=== PATIENT | male | born 1945 | race African-American/Black ===

== ENCOUNTER 2017-03-29 03:18 | Emergency (ER) | payer MEDICARE, OTHER ==
[~2017-03-29] VITALS: Ht 180.3 cm; Wt 92.5 kg
[~2017-03-29 03:18] MED LIST: AMLO5TAB96 PO; DOXY100T PO; VENTAER INH
[2017-03-29 03:20] VITALS: BP 146/79; PULSE 86; RESP 16; TEMP 97.8; O2SAT 94
[2017-03-29] MEDS ORDERED: AMLO5TAB2 PO (03:41)
[2017-03-29] MEDS ORDERED: SIMV20TA PO (03:42)
[2017-03-29] MEDS ORDERED: OMEP20TA PO (03:42)
[2017-03-29] MEDS ORDERED: SODIUM CHLORIDE 0.9% FLUSH 10 ML FLUSH IV FLUSH PRN (03:45)
[2017-03-29 04:03] LABS: AUTOMATED NEUTROPHIL # 3.8 TH/MM3 (1.8-7.7); BASOPHIL # 0.1 TH/MM3 (0-0.2); BASOPHIL % 1.1 % (0.0-2.0); EOSINOPHIL # 0.4 TH/MM3 (0-0.4); EOSINOPHIL % 5.2 % (0.0-4.0); HEMATOCRIT 44.8 % (39.0-51.0); HEMO FLAGS DIFF FINAL; LYMPH % 37.5 % (9.0-44.0); LYMPHOCYTE # 2.9 TH/MM3 (1.0-4.8); MEAN CELL VOLUME 87.9 FL (80.0-100.0); MEAN CORPUSCULAR HEMOGLOBIN 30.9 PG (27.0-34.0); MEAN CORPUSCULAR HGB CONC 35.1 % (32.0-36.0); MONO % 7.4 % (0.0-8.0); NEUT % 48.8 % (16.0-70.0); PLATELET COUNT 230 TH/MM3 (150-450); RED BLOOD COUNT 5.09 MIL/MM3 (4.50-5.90); RED CELL DISTRIBUTION WIDTH 13.8 % (11.6-17.2); WHITE BLOOD COUNT 7.8 TH/MM3 (4.0-11.0)
[2017-03-29 04:14] LABS: APTT (PATIENT) 27.8 SEC (24.3-30.1); INTERNATIONAL NORMALIZED RATIO 0.9 RATIO; PROTHROMBIN TIME - PATIENT 10.3 SEC (9.8-11.6)
--- NOTE | 2017-03-29 04:14 | RADRPT ---
EXAM DATE/TIME: 03/29/2017 04:01 [facility] COMPARISON: No previous studies available for comparison. INDICATIONS : Leg pain in distal right femur. MEDICAL HISTORY : None. SURGICAL HISTORY : None. ENCOUNTER: Initial ACUITY: 1 day PAIN SCORE: 0/10 LOCATION: Right femur FINDINGS: Two view examination of the right femur demonstrates no evidence of fracture or dislocation. Bony mi neralization is normal. The soft tissue structures are intact. There is advanced degenerative change noted in the knee most prominently in the medial compartment with significant joint space narrowing. CONCLUSION: 1. No acute fracture or dislocation. 2. Advanced degenerative osteoarthritis of the knee, most prominently in the medial compartment. Alexander Dasilva MD on March 29, 2017 at 4:10 Board Certified Radiologist. This report was verified electronically.
--- NOTE | 2017-03-29 04:38 | RADRPT ---
EXAM DATE/TIME: 03/29/2017 03:55 [facility] COMPARISON: No previous studies available for comparison. INDICATIONS : Bilalateral leg pain. MEDICAL HISTORY : Hypertension. Hypercholesterolemia. SURGICAL HISTORY : None. ENCOUNTER: Initial ACUITY: 1 day PAIN SCORE: 3/10 LOCATION: Bilateral legs. TECHNIQUE: Venous ultrasound of the left and right leg was performed from the inguinal ligament to the proximal calf. Real-time, color Doppler and spectral tracing, compression and augmentation techniques were us ed. FINDINGS: RIGHT LEG: There is normal compressibility of the deep venous system from the inguinal region to the proximal ca lf. No echogenic clot is seen in the lumen of the common femoral, femoral, popliteal, and posterior tibial veins. There is a normal response of the venous system to proximal and distal augmentation an d respiration. LEFT LEG: There is normal compressibility of the deep venous system from the inguinal region to the proximal ca lf. No echogenic clot is seen in the lumen of the common femoral, femoral, popliteal, and posterior tibial veins. There is a normal response of the venous system to proximal and distal augmentation an d respiration. CONCLUSION: 1. No sonographic evidence for lower extremity DVT. Alexander Dasilva MD on March 29, 2017 at 4:36 Board Certified Radiologist. This report was verified electronically.
[2017-03-29 04:40] LABS: BICARBONATE 26.9 MEQ/L (21.0-32.0)
[2017-03-29] MEDS ORDERED: CYCL1TAB29 PO (05:00)
--- NOTE | 2017-03-29 05:00 | PD ---
HPI Chief Complaint: Musculoskeletal Complaint Time Seen by Provider: 03:38 Travel History International Travel<30 days: No Contact w/Intl Traveler<30days: No Traveled to known affect area: No History of Present Illness HPI 71-year-old male here for evaluation of right posterior thigh pain that started suddenly at around 11:00 PM yesterday evening after getting up from sitting. Pain is sharp, worse with movement and palpation. No history of DVT or PE. He does a lot of traveling with long car rides. No chest pain or dyspnea. PFSH Past Medical History Cardiovascular Problems: Yes (HTN) High Cholesterol: Yes Hypertension: Yes Tetanus Vaccination: > 5 Years Influenza Vaccination: Yes Past Surgical History Surgical History: No Previous Surgery Social History Alcohol Use: No Tobacco Use: No (quit 50 years ago) Substance Use: No Allergies-Medications (Allergen,Severity, Reaction): Coded Allergies: carisoprodol (Unverified Allergy, Severe, Swelling, 03/29/17) Reported Meds & Prescriptions Reported Meds & Active Scripts Active Reported Omeprazole 20 Mg Tab 20 Mg PO DAILY Simvastatin 20 Mg Tab 20 Mg PO DAILY Amlodipine (Amlodipine Besylate) 5 Mg Tab 5 Mg PO DAILY Review of Systems Except as stated in HPI: all other systems reviewed are Neg Physical Exam Narrative GENERAL: Well-developed, well-nourished, comfortable, no apparent distress. SKIN: Focused skin assessment warm/dry. HEAD: Atraumatic. Normocephalic. EYES: Pupils equal and round. No scleral icterus. No injection or drainage. ENT: Mucous membranes pink and moist. NECK: Trachea midline. No JVD. CARDIOVASCULAR: Regular rate and rhythm. Bilateral posterior tibialis pulses are brisk and equal. RESPIRATORY: No accessory muscle use. Clear to auscultation. Breath sounds equal bilaterally. MUSCULOSKELETAL: No obvious deformities. No clubbing. No cyanosis. No edema. Normal range of motion in bilateral lower extremities. Mild right posterior thigh tenderness without skin changes. NEUROLOGICAL: Awake and alert. No obvious cranial nerve deficits. Motor grossly within normal limits. Normal speech. PSYCHIATRIC: Appropriate mood and affect; insight and judgment normal. Data Data Last Documented VS Vital Signs Date Time Temp Pulse Resp B/P (MAP) Pulse Ox O2 Delivery O2 Flow Rate FiO2 03/29/17 03:20 97.8 86 16 146/79 (101) 94 Room Air Orders Orders Basic Metabolic Panel (Bmp) (9/5/17 03:41) Complete Blood Count With Diff (03/29/17 03:41) Prothrombin Time / Inr (Pt) (03/29/17 03:41) Act Partial Throm Time (Ptt) (03/29/17 03:41) Iv Access Insert/Monitor (03/29/17 03:41) Ecg Monitoring (03/29/17 03:41) Oximetry (03/29/17 03:41) Sodium Chloride 0.9% Flush (Ns Flush) (03/29/17 03:45) Femur (Ap & Lat/2vws) (03/29/17 ) Us Leg Venous Doppler Bilat (03/29/17 ) Labs Laboratory Tests Test 03/29/17 03:42 White Blood Count 7.8 TH/MM3 Red Blood Count 5.09 MIL/MM3 Hemoglobin 15.7 GM/DL Hematocrit 44.8 % Mean Corpuscular Volume 87.9 FL Mean Corpuscular Hemoglobin 30.9 PG Mean Corpuscular Hemoglobin Concent 35.1 % Red Cell Distribution Width 13.8 % Platelet Count 230 TH/MM3 Mean Platelet Volume 8.5 FL Neutrophils (%) (Auto) 48.8 % Lymphocytes (%) (Auto) 37.5 % Monocytes (%) (Auto) 7.4 % Eosinophils (%) (Auto) 5.2 % Basophils (%) (Auto) 1.1 % Neutrophils # (Auto) 3.8 TH/MM3 Lymphocytes # (Auto) 2.9 TH/MM3 Monocytes # (Auto) 0.6 TH/MM3 Eosinophils # (Auto) 0.4 TH/MM3 Basophils # (Auto) 0.1 TH/MM3 CBC Comment DIFF FINAL Differential Comment Prothrombin Time 10.3 SEC Prothromb Time International Ratio 0.9 RATIO Activated Partial Thromboplast Time 27.8 SEC Blood Urea Nitrogen 28 MG/DL Creatinine 1.16 MG/DL Random Glucose 108 MG/DL Calcium Level 9.0 MG/DL Sodium Level 141 MEQ/L Potassium Level 4.0 MEQ/L Chloride Level 108 MEQ/L Carbon Dioxide Level 26.9 MEQ/L Anion Gap 6 MEQ/L Estimat Glomerular Filtration Rate 75 ML/MIN MDM Medical Decision Making Medical Screen Exam Complete: Yes Emergency Medical Condition: Yes Differential Diagnosis Muscle strain, muscle cramp, DVT Narrative Course Vital signs reviewed. CBC is unremarkable. BMP is essentially unremarkable. Right lower extremity venous duplex: Negative for DVT. Right femur x-ray: No acute fracture dislocation. Advanced degenerative osteoarthritis of the knee most prominently in the medial compartment. Patient aware of all findings. He is resting comfortably. He likely suffering from a musculoskeletal strain. He'll be discharged home with a prescription for a muscle relaxant. PMD follow-up this week. He was informed on when to return to the emergency department. He verbalizes understanding and agreement with plan. Diagnosis Primary Impression: Muscle strain of right thigh Qualified Codes: S76.911A - Strain of unspecified muscles, fascia and tendons at thigh level, right thigh, initial encounter Referrals: Primary Care Physician 3 days Additional Instructions: Follow-up with your primary care physician this week. Return to the emergency department for worsening symptoms or any other concerns. Scripts Cyclobenzaprine (Flexeril) 10 Mg Tab 10 MG PO TID for Muscle Spasm, #10 TAB 0 Refills Prov: Ehsan Moreno MD 03/29/17 Disposition: 01 DISCHARGE HOME Condition: Stable Ehsan Moreno MD Mar 29, 2017 05:00
== END 2017-03-29 05:17 | disposition home or self-care (01) ==
LOC: NEPE 03:18
DX: S76.911A Strain of unspecified muscles, fascia and tendons at thigh level, right thigh, initial encounter (principal); X58.XXXA Exposure to other specified factors, initial encounter; M17.11 Unilateral primary osteoarthritis, right knee; I10 Essential (primary) hypertension; E78.00 Pure hypercholesterolemia, unspecified
CPT/HCPCS: 73552; 80048; 85025; 85610; 85730; 93970; 99284

== ENCOUNTER 2017-12-28 02:53 | Emergency (ER) | payer MEDICARE ==
[~2017-12-28] VITALS: Ht 172.7 cm; Wt 93.0 kg
[~2017-12-28 02:53] MED LIST changes: +AMLO5TAB2 PO; -AMLO5TAB96 PO; +CYCL10TA PO; -DOXY100T PO; +OMEP20TA93 PO; +SIMV20TA PO; -VENTAER INH
[2017-12-28 03:13] VITALS: BP 192/89; PULSE 104; RESP 22; TEMP 97.2; O2SAT 97
[2017-12-28 04:07] LABS: AUTOMATED NEUTROPHIL # 14.2 TH/MM3 (1.8-7.7); BASOPHIL % 0.2 % (0.0-2.0); EOSINOPHIL # 0.1 TH/MM3 (0-0.4); EOSINOPHIL % 0.4 % (0.0-4.0); HEMATOCRIT 41.2 % (39.0-51.0); HEMOGLOBIN 14.2 GM/DL (13.0-17.0); LYMPHOCYTE # 1.4 TH/MM3 (1.0-4.8); MEAN CELL VOLUME 86.7 FL (80.0-100.0); MEAN CORPUSCULAR HEMOGLOBIN 29.9 PG (27.0-34.0); MEAN CORPUSCULAR HGB CONC 34.5 % (32.0-36.0); MEAN PLATELET VOLUME 8.1 FL (7.0-11.0); MONO % 7.2 % (0.0-8.0); MONOCYTE # 1.2 TH/MM3 (0-0.9); NEUT % 84.2 % (16.0-70.0); PLATELET COUNT 222 TH/MM3 (150-450); RED BLOOD COUNT 4.76 MIL/MM3 (4.50-5.90); WHITE BLOOD COUNT 16.9 TH/MM3 (4.0-11.0)
[2017-12-28 04:18] LABS: BACTERIA, URINE RARE /hpf; BILIRUBIN, URINE NEG (NEG); BLOOD, URINE SMALL (NEG); GLUCOSE,URINE NEG (NEG); HYALINE CAST, URINE 2 /lpf (RARE); KETONE, URINE NEG (NEG); NITRITE,URINE NEG (NEG); PH, URINE 5.5 (5.0-8.5); URINE COLOR YELLOW (YELLW/STRAW); URINE LEUKOCYTE ESTERASE TRACE (NEG)
[2017-12-28 04:19] LABS: BICARBONATE 24.2 MEQ/L (21.0-32.0); CALCIUM 8.7 MG/DL (8.5-10.1); CREATININE 1.16 MG/DL (0.60-1.30)
--- NOTE | 2017-12-28 04:28 | PD ---
HPI Chief Complaint: Complaint Time Seen by Provider: 03:31 Travel History International Travel<30 days: No Contact w/Intl Traveler<30days: No Traveled to known affect area: No History of Present Illness HPI The patient is a 72 year old male who presents to the [facility] emergency department with a history of difficulty urinating that began on Tuesday. He reports that he began to have dysuria with urinary frequency and urgency. He reports that it progressively got worse until Tuesday. He reports that on Tuesday he was able to see his primary care physician was diagnosed with a urinary tract infection. He was started on ciprofloxacin. He reports that yesterday he had an elevated temperature with a T-max of 100. He denies having any nausea, vomiting, or diarrhea. He reports that throughout the day on Tuesday he began to have decreased urine output with only a trickle coming out each time. He reports that he has been diagnosed with prostate hypertrophy in the past. He has had a prostate biopsy a few years ago that was reportedly negative. He reports that he has had urinary retention in the past requiring a Kearney catheter to be placed. The patient reports that he feels like he is retaining urine again. The patient reports having a pressure sensation in the lower abdomen. On review of systems otherwise, the patient denies having any cough or congestion, neck pain, chest pain, shortness of breath, or neurologic symptoms. [facility] Past Medical History Narrative Medical The patient's past medical history is significant for benign prostatic hypertrophy, history of hypertension. Cardiovascular Problems: Yes (HTN) High Cholesterol: Yes Diminished Hearing: Yes Hypertension: Yes Immunizations Current: Yes Tetanus Vaccination: Unknown Influenza Vaccination: Yes Past Surgical History Narrative Surgical The patient's past surgical history is reportedly significant for prostate biopsy. Surgical History: No Previous Surgery Social History Alcohol Use: No Tobacco Use: No (quit 50 years ago) Substance Use: No Allergies-Medications (Allergen,Severity, Reaction): Coded Allergies: carisoprodol (Unverified Allergy, Severe, Swelling, 12/28/17) Reported Meds & Prescriptions Reported Meds & Active Scripts Active Flomax (Tamsulosin HCl) 0.4 Mg Cap 0.4 Mg PO HS Reported Omeprazole 20 Mg Tab 20 Mg PO DAILY Simvastatin 20 Mg Tab 20 Mg PO DAILY Amlodipine (Amlodipine Besylate) 5 Mg Tab 5 Mg PO DAILY Review of Systems Except as stated in HPI: all other systems reviewed are Neg General / Constitutional: Positive: Fever Eyes: No: Visual changes HENT: No: Headaches Cardiovascular: No: Chest Pain or Discomfort Respiratory: No: Shortness of Breath Gastrointestinal: Positive: Abdominal Pain, No: Nausea, Vomiting, Diarrhea Genitourinary: Positive: Urgency, Dysuria, Decreased Urinary Output, Dribbling , Pelvic Pain Musculoskeletal: No: Pain Skin: No Rash Neurologic: No: Weakness, Focal Abnormalities, Change in Mentation, Slurred Speech, Sensory Disturbance Psychiatric: No: Depression Endocrine: No: Polydipsia Hematologic/Lymphatic: No: Easy Bruising Physical Exam Narrative General: The patient is a well-developed well-nourished male, uncomfortable appearing on my arrival to the room, pacing the floor. Head and Neck exam: Head is normocephalic atraumatic. Eyes: EOMI, pupils are equal round and reactive to light. Nose: Midline septum with pink mucous membranes Mouth: Dentition unremarkable. Moist mucus membranes. Posterior oropharynx is not erythematous. No tonsillar hypertrophy. Uvula midline. Airway patent. Neck: No palpable lymphadenopathy. No nuchal rigidity. No thyromegaly. Cardiovascular: Regular rate and rhythm without murmurs, gallops, or rubs. No pulse deficit to the extremities on simultaneous auscultation and palpation of his radial artery. Lungs: Clear to auscultation bilaterally. No wheezes, rhonchi, or rales. Abdomen: Soft, with suprapubic abdominal pressure and tenderness on palpation. No other tenderness on palpation of the other quadrants of the abdomen. No guarding, rebound, or rigidity. Normal bowel sounds are audible. No tenderness on palpation of McBurney's point. Extremities: No clubbing, cyanosis, or edema. 2+ pulses in all 4 extremities. No calf tenderness on palpation. Back: No spinous process tenderness to palpation. No costovertebral angle tenderness to palpation. Neurologic Exam: Grossly nonfocal. Skin Exam: No rash noted. Intact skin that is warm and dry. Data Data Last Documented VS Vital Signs Date Time Temp Pulse Resp B/P (MAP) Pulse Ox O2 Delivery O2 Flow Rate FiO2 12/28/17 03:13 97.2 104 22 192/89 (123) 97 Orders Orders Complete Blood Count With Diff (12/28/17 03:42) Basic Metabolic Panel (Bmp) (12/28/17 03:42) Urinalysis - C+S If Indicated (12/28/17 03:42) Iv Access Insert/Monitor (12/28/17 03:42) Ecg Monitoring (12/28/17 03:42) Oximetry (12/28/17 03:42) Urinary Catheter Insert/Apply (12/28/17 03:42) Ct Abd/Pel W Iv Contrast(Rout) (12/28/17 04:20) Iohexol 350 Inj (Omnipaque 350 Inj) (12/28/17 04:37) Ns (Bolus) Inj (12/28/17 05:15) Labs Laboratory Tests Test 12/28/17 04:00 White Blood Count 16.9 TH/MM3 Red Blood Count 4.76 MIL/MM3 Hemoglobin 14.2 GM/DL Hematocrit 41.2 % Mean Corpuscular Volume 86.7 FL Mean Corpuscular Hemoglobin 29.9 PG Mean Corpuscular Hemoglobin Concent 34.5 % Red Cell Distribution Width 14.0 % Platelet Count 222 TH/MM3 Mean Platelet Volume 8.1 FL Neutrophils (%) (Auto) 84.2 % Lymphocytes (%) (Auto) 8.0 % Monocytes (%) (Auto) 7.2 % Eosinophils (%) (Auto) 0.4 % Basophils (%) (Auto) 0.2 % Neutrophils # (Auto) 14.2 TH/MM3 Lymphocytes # (Auto) 1.4 TH/MM3 Monocytes # (Auto) 1.2 TH/MM3 Eosinophils # (Auto) 0.1 TH/MM3 Basophils # (Auto) 0.0 TH/MM3 CBC Comment DIFF FINAL Differential Comment Urine Color YELLOW Urine Turbidity CLEAR Urine pH 5.5 Urine Specific Conrad 1.008 Urine Protein TRACE mg/dL Urine Glucose (UA) NEG mg/dL Urine Ketones NEG mg/dL Urine Occult Blood SMALL Urine Nitrite NEG Urine Bilirubin NEG Urine Urobilinogen LESS THAN 2.0 MG/DL Urine Leukocyte Esterase TRACE Urine RBC 9 /hpf Urine WBC 2 /hpf Urine Bacteria RARE /hpf Urine Hyaline Casts 2 /lpf Microscopic Urinalysis Comment CULT NOT INDICATED Blood Urea Nitrogen 16 MG/DL Creatinine 1.16 MG/DL Random Glucose 152 MG/DL Calcium Level 8.7 MG/DL Sodium Level 138 MEQ/L Potassium Level 3.4 MEQ/L Chloride Level 103 MEQ/L Carbon Dioxide Level 24.2 MEQ/L Anion Gap 11 MEQ/L Estimat Glomerular Filtration Rate 75 ML/MIN MDM Medical Decision Making Medical Screen Exam Complete: Yes Emergency Medical Condition: Yes Medical Record Reviewed: Yes Differential Diagnosis Urinary retention, versus prostatitis, versus cystitis, versus pyelonephritis Narrative Course During the course of the patient's emergency department visit, the patient's history, examination, and differential diagnosis were reviewed with the patient. The patient was placed on a pan reclaim processor with oximetry and frequent blood pressure monitoring. The patient had IV access obtained and blood work sent for analysis. The patient had a Kearney catheter placed to gravity. The patient was retaining urine and 400 cc of yellow urine came out immediately. The patient was initially provided normal saline IV fluids The patient's laboratory studies were reviewed and remarkable for a white count of 16.9, hemoglobin 14.2, platelets 222 with 84.2 neutrophils, basic metabolic profile is remarkable for potassium of 3.4, glucose 152, urinalysis shows small occult blood, trace leukocyte esterase, 9 RBCs, rare bacteria, culture not indicated. Radiology studies were reviewed and remarkable for a CT scan of the abdomen and pelvis that shows multiple stones in the gallbladder without any biliary tract obstruction or signs of inflammation, diffuse enlargement of the prostate gland , a few scattered diverticuli without evidence of inflammation. The patient will be discharged home to follow-up with his urologist. The patient will be given a prescription of Flomax. The patient just started ciprofloxacin within the last 24 hours. He is instructed to continue the antibiotic until it is completed. The patient is instructed to push fluids and get plenty of rest. The patient will have his Kearney catheter placed to a leg bag. The patient is resting comfortably and feels better, is alert and in no distress. The patient's results and examination findings were discussed with the patient. The repeat examination is unremarkable and benign. The history, exam, diagnostic testing, and current condition do not suggest any significant pathology to warrant further testing, continued ED treatment, admission, or surgical evaluation at this point. The vital signs have been stable. The patient does not have uncontrollable pain, intractable vomiting, or other significant symptoms. The patient's condition is stable and appropriate for discharge. The patient will pursue further outpatient evaluation with a primary care physician or other designated or consulting physician as indicated in the discharge instructions. The patient is instructed to report back to the emergency department immediately for reexamination in the mean time if he develops any new or worsening signs or symptoms. The patient expressed understanding and was agreeable with this plan. Diagnosis Primary Impression: Urinary retention Additional Impressions: Prostate hypertrophy Urinary tract infection Qualified Codes: N39.0 - Urinary tract infection, site not specified Referrals: Urologist 2 days Patient Instructions: Kearney Catheter Placement and Care (ED), General Instructions, Urinary Retention in Men (ED), Urinary Tract Infection in Men (ED) Scripts Tamsulosin (Flomax) 0.4 Mg Cap 0.4 MG PO HS for Manage Prostate Problems, #30 CAP 0 Refills Prov: Nelida Capellan MD 12/28/17 Disposition: 01 DISCHARGE HOME Condition: Stable Nelida Capellan MD Dec 28, 2017 04:28
[2017-12-28] MEDS ORDERED: IOHEXOL 350 MG/ML 10 ML VIAL (for RAD DIAG) IVCONTRAST ONE (04:37)
--- NOTE | 2017-12-28 04:50 | RADRPT ---
EXAM DATE: 12/28/2017 4:40 AM EDT AGE/SEX: 72 years / Male INDICATIONS: Lower abdominal pain, dysuria. CLINICAL DATA: This is the patient's initial encounter. Patient reports that signs and symptoms have been present for 2 days and indicates a pain score of 9/10. MEDICAL/SURGICAL HISTORY: Hypertension. None. ORAL CONTRAST: No oral contrast ingested. RADIATION DOSE: 7.57 CTDI (mGy) COMPARISON: No prior [facility] exams available for comparison. TECHNIQUE: Multiple contiguous axial images were obtained through the abdomen and pelvis following b olus infusion of 75 ml Omnipaque 350 (iohexol) nonionic water-soluble contrast as a single exam dos e. No oral contrast ingested. Using automated exposure control and adjustment of the mA and/or kV ac cording to patient size, the radiation dose was kept as low as reasonably achievable to obtain optima l diagnostic quality images. FINDINGS: Lower Lungs: The visualized lower lungs are clear. Liver: The liver has a homogeneous density without space-occupying lesion. There is no dilation of th e biliary tree. Multiple stones in the gallbladder. No inflammatory changes. Spleen: Homogeneous density without enlargement. Pancreas: Unremarkable without mass or calcification. Kidneys: Normal in size and shape. No evidence of mass or hydronephrosis. Adrenal Glands: Unremarkable. Aorta: The aorta and proximal iliac vessels are grossly unremarkable without aneurysmal dilation. Bowel/Mesentery: The bowel loops are grossly unremarkable. The cecum and sigmoid colon have a normal configuration. The appendix is unremarkable. A few scattered diverticula are seen along the sigmoid colon. No inflammatory changes. Stool throughout the colon. Abdominal Wall: Intact. Retroperitoneum: No evidence of adenopathy in the retrocrural, para-aortic, or deep pelvic regions. Bladder: Kearney catheter in a contracted urinary bladder. Reproductive Organs: Diffuse enlargement of the prostate gland measuring 6.7 x 6.6 cm. Inguinal: The inguinal region is unremarkable without evidence of adenopathy. Bony Structures: Primary bony degenerative changes. CONCLUSION: 1. Multiple stones in the gallbladder. No biliary tract obstruction. 2. Diffuse enlargement of the prostate gland. 3. A few scattered diverticula without inflammatory changes. Electronically signed by: Geoffrey Jaramillo MD 12/28/2017 4:48 AM EDT
[2017-12-28] MEDS ORDERED: TAMS5CAP PO (05:02)
[2017-12-28] MEDS ORDERED: SODIUM CHLORID 0.9% 500 ML INJ 500 ML IV ONE (05:15)
[2017-12-28 05:53] VITALS: PULSE 80; RESP 14; O2SAT 96
== END 2017-12-28 05:55 | disposition home or self-care (01) ==
LOC: NEPC 02:53
DX: N40.1 Benign prostatic hyperplasia with lower urinary tract symptoms (principal); R35.0 Frequency of micturition; R33.8 Other retention of urine; R39.15 Urgency of urination; N39.0 Urinary tract infection, site not specified; E78.00 Pure hypercholesterolemia, unspecified; I10 Essential (primary) hypertension; Z87.891 Personal history of nicotine dependence
CPT/HCPCS: 51702; 74177; 80048; 81001; 85025; 99285; J7040; Q9967

== ENCOUNTER 2017-12-28 06:49 | Emergency (ER) | payer MEDICARE ==
[~2017-12-28] VITALS: Ht 182.9 cm; Wt 88.5 kg
[~2017-12-28 06:49] MED LIST changes: +TAMS5CAP PO
[2017-12-28 07:13] VITALS: BP 169/88; PULSE 104; RESP 18; TEMP 98.3; O2SAT 97
--- NOTE | 2017-12-28 07:45 | PD ---
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 He had some urinary retention and a [place] catheter was placed and he went home. He comes back today because there is some leakage from the catheter. Some urine is going into the bag and also he has had a trickle of urine down his leg. He is not having any acute pain. Symptom severity is mild. Duration 2 hours. No alleviating factors. No exacerbating factors. PFSH Past Medical History Cardiovascular Problems: Yes (HTN) High Cholesterol: Yes Diminished Hearing: Yes Hypertension: Yes Immunizations Current: Yes Past Surgical History Surgical History: No Previous Surgery Social History Alcohol Use: No Tobacco Use: No (quit 50 years ago) Substance Use: No Allergies-Medications (Allergen,Severity, Reaction): Coded Allergies: carisoprodol (Unverified Allergy, Severe, Swelling, 12/28/17) Reported Meds & Prescriptions Reported Meds & Active Scripts Active Flomax (Tamsulosin HCl) 0.4 Mg Cap 0.4 Mg PO HS Reported Omeprazole 20 Mg Tab 20 Mg PO DAILY Simvastatin 20 Mg Tab 20 Mg PO DAILY Amlodipine (Amlodipine Besylate) 5 Mg Tab 5 Mg PO DAILY Review of Systems General / Constitutional: No: Fever Eyes: No: Visual changes HENT: No: Headaches Cardiovascular: No: Chest Pain or Discomfort Respiratory: No: Shortness of Breath Gastrointestinal: No: Abdominal Pain Genitourinary: No: Dysuria Musculoskeletal: No: Pain Skin: No Rash Neurologic: No: Weakness Psychiatric: No: Depression Endocrine: No: Polydipsia Hematologic/Lymphatic: No: Easy Bruising Physical Exam Narrative GENERAL: Well-nourished, well-developed patient in no apparent distress. SKIN: Focused skin assessment reveals no rash and nodules. Skin is Warm and dry. HEAD: Atraumatic. Normocephalic. EYES: Pupils equal and round. No scleral icterus. No injection or drainage. ENT: No nasal bleeding or discharge. Mucous membranes pink and moist. NECK: Trachea midline. No JVD. CARDIOVASCULAR: Regular rate and rhythm. No murmur appreciated. RESPIRATORY: No accessory muscle use. Clear to auscultation. Breath sounds equal bilaterally. GASTROINTESTINAL: Abdomen soft, non-tender, nondistended. Hepatic and splenic margins not palpable. MUSCULOSKELETAL: No obvious deformities. No clubbing. No cyanosis. No edema. NEUROLOGICAL: Awake and alert. No obvious cranial nerve deficits. Motor grossly within normal limits. Normal speech. PSYCHIATRIC: Appropriate mood and affect; insight and judgment normal. : Uncircumcised. K[place] catheter in place. There is some clear yellow urine in the bag. I do not see any obvious leakage from the meatus at this time Data Data Last Documented VS Vital Signs Date Time Temp Pulse Resp B/P (MAP) Pulse Ox O2 Delivery O2 Flow Rate FiO2 12/28/17 07:13 98.3 104 18 169/88 (115) 97 Orders Orders Urinary Catheter - Remove (12/28/17 07:56) Urinary Catheter Insert/Apply (12/28/17 07:56) [facility] Medical Decision Making Medical Screen Exam Complete: Yes Emergency Medical Condition: Yes Medical Record Reviewed: Yes Differential Diagnosis [place] catheter leak, device malfunction, balloon down Narrative Course I have reviewed the patient's electronic medical record. Reviewed his extensive workup from 2 hours ago. He had urine studies and lab studies and CT of abdomen and pelvis Patient felt the balloon was not properly inflated. He has had catheters before. The nurses evaluated the catheter. The balloon was filled with 5 cc and its supposed to be filled with 10 she says. She has filled it up properly. We will watch him for a while and make sure he is not continuing to leak Unfortunately the catheter continued to leak We removed the catheter he came in with and replaced it with a new one which is functioning properly without leak Patient wants to go home Diagnosis Primary Impression: Malfunction of [place] catheter Qualified Codes: T83.011A - Breakdown (mechanical) of indwelling urethral catheter, initial encounter Additional Instructions: Follow-up with primary care and urology Med/Other Pt SpecificInfo: Other Disposition: 01 DISCHARGE HOME Condition: Stable Baron Jara MD Dec 28, 2017 07:45
== END 2017-12-28 08:46 | disposition home or self-care (01) ==
LOC: NEPE 06:49
DX: T83.011A Breakdown (mechanical) of indwelling urethral catheter, initial encounter (principal)
CPT/HCPCS: 51702